=== PATIENT | female | born 1950 | race Caucasian/White ===

== ENCOUNTER 2018-03-15 20:47 | Emergency (ER) | payer MEDICARE, OTHER ==
[~2018-03-15] VITALS: Ht 167.6 cm; Wt 81.2 kg
[2018-03-15] MEDS ORDERED: ALBU2.5V5 NEB (21:24)
[2018-03-15] MEDS ORDERED: HYDR1TAB94 PO (21:24)
[2018-03-15] MEDS ORDERED: ALBU90OI INH (21:24)
[2018-03-15] MEDS ORDERED: BUDE6HFA INH (21:25)
[2018-03-15] MEDS ORDERED: DIAZ5 PO (21:25)
[2018-03-15] MEDS ORDERED: AMLO10 PO (21:25)
[2018-03-15] MEDS ORDERED: Advair Hfa 230-12 GM (21:26)
[2018-03-15] MEDS ORDERED: HYDCHL25 PO (21:27)
[2018-03-15] MEDS ORDERED: INSULANPEN SC (21:27)
[2018-03-15] MEDS ORDERED: LANS30EC PO (21:28)
[2018-03-15] MEDS ORDERED: LISI20 PO (21:28)
[2018-03-15] MEDS ORDERED: MONT10T PO (21:28)
[2018-03-15] MEDS ORDERED: METF500C PO (21:28)
[2018-03-15] MEDS ORDERED: Percocet 5-3251 EACH PO (22:16)
== END 2018-03-15 22:34 | disposition home or self-care (01) ==
LOC: ER 20:47
DX: S52.135A Nondisplaced fracture of neck of left radius, initial encounter for closed fracture (principal); W01.198A Fall on same level from slipping, tripping and stumbling with subsequent striking against other object, initial encounter; E11.9 Type 2 diabetes mellitus without complications; I10 Essential (primary) hypertension; J45.909 Unspecified asthma, uncomplicated; Z87.891 Personal history of nicotine dependence
CPT/HCPCS: 24999; 73070; 73080; 73140; 96374; 99152; 99284-25; J2250; J3010; J7030

== ENCOUNTER → 2019-05-13 | Outpatient (CLI) | payer MEDICARE, OTHER ==
[~2019-05-13] MED LIST: ALBU2.5V5 NEB; ALBU90OI INH; AMLO10 PO; Advair Hfa 230-12 GM; BUDE6HFA INH; DIAZ5 PO; HYDCHL25 PO; HYDR1TAB94 PO; INSULANPEN SC; LANS30EC PO; LISI20 PO; METF500C PO; MONT10T PO; Percocet 5-3251 EACH PO
== END ==
LOC: LAB SHORT 07:49 → PLD 07:49
DX: D04.62 Carcinoma in situ of skin of left upper limb, including shoulder (principal); L30.8 Other specified dermatitis
CPT/HCPCS: 88305; 88312

== ENCOUNTER → 2020-03-09 | Outpatient (CLI) | payer MEDICARE, OTHER | END | disposition home or self-care (01) | LOC: PLD 08:13 → LAB SHORT 08:13 | DX: L57.8 Other skin changes due to chronic exposure to nonionizing radiation (principal) | CPT/HCPCS: 88305 ==

== ENCOUNTER 2020-05-03 06:43 | Day surgery (SDC) | payer MEDICARE, OTHER | END 2020-05-04 11:00 | disposition home or self-care (01) | LOC: ORSCMMR 06:43 → SURS 13:11 | PROC: 0SRD0J9 Replacement of Left Knee Joint with Synthetic Substitute, Cemented, Open Approach (ICD-10-PCS; principal; 2020-05-03) | DX: M17.12 Unilateral primary osteoarthritis, left knee (principal); I10 Essential (primary) hypertension; G47.33 Obstructive sleep apnea (adult) (pediatric); J45.909 Unspecified asthma, uncomplicated; E11.9 Type 2 diabetes mellitus without complications; E66.9 Obesity, unspecified; Z68.34 Body mass index [BMI] 34.0-34.9, adult; Z79.84 Long term (current) use of oral hypoglycemic drugs; Z79.4 Long term (current) use of insulin; Z79.899 Other long term (current) drug therapy ==

== ENCOUNTER 2021-06-16 12:27 | Inpatient (IN) | payer MEDICARE, OTHER ==
[~2021-06-16] VITALS: Ht 165.1 cm; Wt 83.0 kg
[~2021-06-16 12:27] MED LIST changes: +BASAGLAR K100 UNIT/1 SC; -INSULANPEN SC; +OXYC5 PO; +Ventolin/Prove6.7 GM INH; +XARELTO10 MG PO
[2021-06-16 14:09] LABS: Hematocrit 44.4 % (33.0-51.0); Hemoglobin 14.8 g/dL (11.5-16.0); Mean Corpuscular HGB 27.7 pg (26.0-34.0); Mean Corpuscular HGB Conc 33.3 g/dL (31.5-36.5); Mean Corpuscular Volume 83 fL (80-100); Mean Platelet Volume 9.2 fL (9.1-12.4); Platelet Count 562 K/mm3 (150-400); RDW Coefficient Variation 12.8 % (11.7-14.2); RDW Standard Deviation 38.7 fL (35.1-46.3); Red Blood Cell Count 5.35 M/mm3 (3.80-5.20); White Blood Cell Count 18.58 K/mm3 (4.00-11.30)
[2021-06-16 14:23] LABS: Albumin, Blood 2.7 g/dL (3.4-5.0); Albumin/Globulin Ratio 0.6 (0.8-1.8); Bilirubin, Total 0.6 mg/dL (0.1-1.0); Bun/Creatinine Ratio 14.5 (12.0-20.0); Creatinine, Blood 2.27 mg/dL (0.40-1.00); Globulin, Blood 4.3 g/dL (2.2-4.0); Potassium, Blood 4.9 mmol/L (3.5-5.5)
[2021-06-16 14:33] LABS: BAND PERCENT MAN 37 % (0-8); BASOPHILS PERCENT MAN 0 % (0-2); EOSINOPHILS PERCENT MAN 0 % (0-6); LYMPHOCYTES % ATYPICAL MANUAL 1 % (0-0); LYMPHOCYTES ABSOLUTE MAN 1.48 K/mm3 (0.84-5.20); LYMPHOCYTES PERCENT MAN 7 % (21-46); METAMYELOCYTE ABSOLUTE MAN 0.18 K/mm3 (0.00-0.00); METAMYELOCYTE PERCENT MAN 1 % (0-0); MONOCYTES ABSOLUTE MAN 0.18 K/mm3 (0.16-1.47); MONOCYTES PERCENT MAN 1 % (4-13); NEUTROPHILS ABSOLUTE MAN 16.72 K/mm3 (1.96-9.15); SEG NEUTROPHILS PERCENT MAN 53 % (41-73); TOTAL CELLS COUNTED 100
[2021-06-16] MEDS ORDERED: HYDR1TAB94 PO (18:10)
[2021-06-16] MEDS ORDERED: IBUP600 PO (18:11)
[2021-06-16] MEDS ORDERED: SPIR50 PO (18:15)
[2021-06-16 19:13] LABS: Influenza A, PCR NEGATIVE (NEGATIVE); Influenza B, PCR NEGATIVE (NEGATIVE); Resp Syncytial Virus, PCR NEGATIVE (NEGATIVE); SARS-Cov-2 (COVID-19) PCR, MMC NEGATIVE (NEGATIVE)
[2021-06-17 02:10] LABS: BASOPHILS ABSOLUTE AUTO 0.09 K/mm3 (0.00-0.23); BASOPHILS PERCENT AUTO 1 % (0-2); Hematocrit 34.5 % (33.0-51.0); Hemoglobin 11.3 g/dL (11.5-16.0); LYMPHOCYTES ABSOLUTE AUTO 0.84 K/mm3 (0.84-5.20); LYMPHOCYTES PERCENT AUTO 7 % (21-46); MONOCYTES ABSOLUTE AUTO 0.29 K/mm3 (0.16-1.47); MONOCYTES PERCENT AUTO 2 % (4-13); Mean Corpuscular HGB 27.7 pg (26.0-34.0); Mean Corpuscular HGB Conc 32.8 g/dL (31.5-36.5); Mean Corpuscular Volume 85 fL (80-100); Mean Platelet Volume 8.6 fL (9.1-12.4); Platelet Count 363 K/mm3 (150-400); RDW Coefficient Variation 12.8 % (11.7-14.2); RDW Standard Deviation 39.6 fL (35.1-46.3); Red Blood Cell Count 4.08 M/mm3 (3.80-5.20); White Blood Cell Count 12.11 K/mm3 (4.00-11.30)
[2021-06-17 02:11] LABS: EOSINOPHILS ABSOLUTE AUTO 0.01 K/mm3 (0.00-0.68); EOSINOPHILS PERCENT AUTO 0 % (0-6); IMMATURE GRAN ABSOLUTE AUTO 0.03 K/mm3 (0.00-0.10); IMMATURE GRAN PERCENT AUTO 0 % (0-1); NEUTROPHILS ABSOLUTE AUTO 10.85 K/mm3 (1.96-9.15); NEUTROPHILS PERCENT AUTO 90 % (41-73)
[2021-06-17 02:31] LABS: Bun/Creatinine Ratio 23.7 (12.0-20.0); Calcium, Blood 8.5 mg/dL (8.5-10.1); Creatinine, Blood 1.52 mg/dL (0.40-1.00); Potassium, Blood 4.4 mmol/L (3.5-5.5)
--- NOTE | 2021-06-17 05:07 | NUR ---
SHIFT SUMMARY S/P TRANSVERSE PERF, UNABLE TO TOLERATE NG TUBE, FEW ICE CHIPS OK'D BY SURGEON, LACTIC TRENDING TOWARDS NORMAL, PAIN MANAGED PER EMAR, VSS. NO ACUTE EVENTS THIS SHIFT. CALL LIGHT IN REACH, WILL CTM AND REPORT TO DAY RN.
--- NOTE | 2021-06-17 15:29 | NUR ---
DR. FIGUEROA NOTIFIED THAT BLOOD CULTURES WERE POSITIVE. NO CHANGES IN PT CONDITION AT THIS TIME.
--- NOTE | 2021-06-17 18:38 | NUR ---
SHIFT SUMMARY PT IS GETTING IV ABX AND REMAINS NPO. SHE IS A 1 ASSIST WITH GAIT BELT AND WALKER WHEN OOB. SHE IS STILL HAVING ABD PAIN BUT IT IS MANAGED WITH FENTANYL. PT HAS DENIED NAUSEA. ABD REMAINS DISTENDED THIS SHIFT. VSS. WILL MONITOR UNTIL REPORT TO NOC RN.
--- NOTE | 2021-06-18 03:53 | NUR ---
SHIFT SUMMARY A/OX4. VOIDING AND PASSING STOOL THIS SHIFT. TOLERATING SIPS AND CHIPS, NO N/V REPORTED. BEING TREATED FOR PAIN Q2-3H PER EMAR. SCD'S ON AT THIS TIME. AMBULATING TO BATHROOM WITH SBA. RESTING COMFORTABLY AT THIS TIME. WILL REPORT TO ONCOMING RN. CALL LIGHT IN REACH
[2021-06-18 04:27] LABS: Hematocrit 33.2 % (33.0-51.0); Hemoglobin 11.1 g/dL (11.5-16.0); Mean Corpuscular HGB 27.6 pg (26.0-34.0); Mean Corpuscular HGB Conc 33.4 g/dL (31.5-36.5); Mean Corpuscular Volume 83 fL (80-100); Mean Platelet Volume 8.8 fL (9.1-12.4); Platelet Count 307 K/mm3 (150-400); RDW Coefficient Variation 12.9 % (11.7-14.2); RDW Standard Deviation 39.3 fL (35.1-46.3); Red Blood Cell Count 4.02 M/mm3 (3.80-5.20); White Blood Cell Count 10.94 K/mm3 (4.00-11.30)
[2021-06-18 04:52] LABS: Alanine Aminotransfer (ALT/SGP 14 U/L (12-78); Albumin, Blood 1.7 g/dL (3.4-5.0); Albumin/Globulin Ratio 0.5 (0.8-1.8); Alk Phos 70 U/L (50-136); Anion Gap 7 mmol/L (6-16); Aspartate Aminotrans (AST/SGOT 19 U/L (12-37); Bilirubin, Total 0.3 mg/dL (0.1-1.0); Blood Urea Nitrogen 33 mg/dL (8-24); Bun/Creatinine Ratio 38.6 (12.0-20.0); CO2, Blood 23 mmol/L (21-32); Chloride, Blood 106 mmol/L (98-108); Creatinine, Blood 0.86 mg/dL (0.40-1.00); Globulin, Blood 3.5 g/dL (2.2-4.0); Glomerular Filtration Rate >60 (60-); Glucose, Blood 105 mg/dL (70-99); Magnesium, Blood 1.4 mg/dL (1.6-2.4); Potassium, Blood 3.8 mmol/L (3.5-5.5); Sodium, Blood 136 mmol/L (136-145); Total Protein, Blood 5.2 g/dL (6.4-8.2)
[2021-06-18 10:45] LABS: Vancomycin, Random 10.6 ug/mL
--- NOTE | 2021-06-18 18:24 | NUR ---
SHIFT SUMMARY PT WAS ALERT AND ORIENTED THROUGHOUT THE SHIFT. HAD CLEAR HEART AND LUNG SOUNDS IN THE MORNING. STILL HAS HYPOACTIVE BOWEL SOUNDS X4, DISTENDED ABDOMEN, AND TRACE EDEMA IN LOWER EXTREMITIES. IV ON THE LEFT FOREARM BECAME INFILTRATED SHOWING REDNESS, WARMTH, AND SWELLING. THE IV WAS REMOVED AND A POWERGLIDE WAS INSERTED IN HER RIGHT ARM. AFTER THE IV REMOVAL THE REDNESS, WARMTH, AND SWELLING DECREASED AND IS CONTINUING TO DECREASE. PT BEGAN COUGHING DURING THE SHIFT BUT SAYS THAT THE COUGHING IS NORMAL AT HOME AND IT IS ALLERGY INDUCED. PT WAS ABLE TO WALK 50 FT AND PERFORM ADL'S WITH ONE ASSIST. PT CONTINUES TO HAVE PAIN THAT SHE STATES COMES ON ABRUPTLY.
[2021-06-19 04:08] LABS: Hematocrit 31.9 % (33.0-51.0); Hemoglobin 10.8 g/dL (11.5-16.0); Mean Corpuscular HGB Conc 33.9 g/dL (31.5-36.5); Mean Corpuscular Volume 83 fL (80-100); Mean Platelet Volume 8.6 fL (9.1-12.4); Platelet Count 297 K/mm3 (150-400); RDW Coefficient Variation 13.2 % (11.7-14.2); RDW Standard Deviation 39.8 fL (35.1-46.3); Red Blood Cell Count 3.86 M/mm3 (3.80-5.20)
[2021-06-19 04:40] LABS: Alanine Aminotransfer (ALT/SGP 12 U/L (12-78); Albumin, Blood 1.8 g/dL (3.4-5.0); Albumin/Globulin Ratio 0.5 (0.8-1.8); Alk Phos 73 U/L (50-136); Anion Gap 8 mmol/L (6-16); Aspartate Aminotrans (AST/SGOT 13 U/L (12-37); Bilirubin, Total 0.3 mg/dL (0.1-1.0); Blood Urea Nitrogen 24 mg/dL (8-24); Bun/Creatinine Ratio 35.2 (12.0-20.0); CO2, Blood 23 mmol/L (21-32); Calcium, Blood 8.7 mg/dL (8.5-10.1); Chloride, Blood 105 mmol/L (98-108); Creatinine, Blood 0.68 mg/dL (0.40-1.00); Globulin, Blood 3.4 g/dL (2.2-4.0); Glomerular Filtration Rate >60 (60-); Glucose, Blood 142 mg/dL (70-99); Magnesium, Blood 1.8 mg/dL (1.6-2.4); Potassium, Blood 3.5 mmol/L (3.5-5.5); Sodium, Blood 136 mmol/L (136-145); Total Protein, Blood 5.2 g/dL (6.4-8.2)
--- NOTE | 2021-06-19 07:44 | NUR ---
PT VSS T/O NIGHT. PT REP ABD SOMEWHAT INC THIS AM, DENIED N/V. PT C/O RESTLESS LEGS, MED PER EMAR. PT NPO PER ORDERS, IVF AND ABX CONT. AWAITING REPEAT CT SCAN
[2021-06-19 10:57] LABS: International Normalized Ratio 1.23; Prothrombin Time Results 12.7 Sec (9.7-11.5)
--- NOTE | 2021-06-19 14:13 | NUR ---
DR BENÍTEZ IN ROOM TO SEE PATIENT. SHE REPORTS THAT PATIENT WILL BE GOING TO SURGERY AT THIS TIME. PT NPO THIS AM. CBC ORDERED PER DR. BENÍTEZ REQUEST.
--- NOTE | 2021-06-19 14:58 | NUR ---
PT RECENTLY TO DAYSURGERY BY [facility], FAMILY WITH PT. PT REPORTS NPO, RECENTLY VOIDING. History, Chart, Medications and Allergies reviewed before start of procedure.Patient confirms NPO status and agrees with scheduled surgery. Pre-Op teaching done. Pt verbalizes understanding. PT RECIEVING BREATHING TREATMENT FOR HER LUNG SOUNDS PER DR BENÍTEZ.
--- NOTE | 2021-06-19 18:35 | NUR ---
SERVICES MANAGER CONFIRMED WITH CAILIN MENDOZA
--- NOTE | 2021-06-19 19:45 | NUR ---
SHIFT SUMMARY PT A&OX4, VSS/3LNC, NPO, S/P EXP LAP GRAM PATCH, ALICE IN PLACE WNL, LILI DRAINING RED, WAGNER PATENT & DRAINING YELLOW URINE, SANITARIAN MANAGING PAIN, NG LIS. REPORT PROVIDED TO ESTEFANI MENDOZA.
--- NOTE | 2021-06-20 04:55 | NUR ---
SHIFT SUMMARY PT A/OX4. POD0 LAP GRAM PATCH MIDLINE ALICE DRESSING INTACT, SMALL AMOUNT OF RED DRAINAGE. TOLERABLE PAIN LEVEL WITH USE OF FENT UNIT NURSE. POWERGLIDE PLACED IN L UPPER ARM. NG TUBE HOOKED TO LOW INTERMITTEN SUCTION, NO N/V THIS SHIFT. WAGNER DRAINING CLEAR YELLOW URINE. RESTING COMFORTABLY, WILL REPORT TO ONCOMING RN.
[2021-06-20 06:09] LABS: Mean Corpuscular HGB 27.2 pg (26.0-34.0); Mean Corpuscular HGB Conc 32.4 g/dL (31.5-36.5); Mean Corpuscular Volume 84 fL (80-100); Mean Platelet Volume 8.8 fL (9.1-12.4); Platelet Count 355 K/mm3 (150-400); RDW Coefficient Variation 13.4 % (11.7-14.2); RDW Standard Deviation 41.6 fL (35.1-46.3); Red Blood Cell Count 4.05 M/mm3 (3.80-5.20)
[2021-06-20 06:27] LABS: Alanine Aminotransfer (ALT/SGP 26 U/L (12-78); Albumin, Blood 1.8 g/dL (3.4-5.0); Albumin/Globulin Ratio 0.5 (0.8-1.8); Alk Phos 119 U/L (50-136); Anion Gap 10 mmol/L (6-16); Aspartate Aminotrans (AST/SGOT 26 U/L (12-37); Bilirubin, Total 0.3 mg/dL (0.1-1.0); Blood Urea Nitrogen 17 mg/dL (8-24); Bun/Creatinine Ratio 25.8 (12.0-20.0); CO2, Blood 24 mmol/L (21-32); Calcium, Blood 8.6 mg/dL (8.5-10.1); Chloride, Blood 103 mmol/L (98-108); Creatinine, Blood 0.66 mg/dL (0.40-1.00); Globulin, Blood 3.5 g/dL (2.2-4.0); Glomerular Filtration Rate >60 (60-); Glucose, Blood 150 mg/dL (70-99); Magnesium, Blood 1.4 mg/dL (1.6-2.4); Potassium, Blood 4.4 mmol/L (3.5-5.5); Sodium, Blood 137 mmol/L (136-145); Total Protein, Blood 5.3 g/dL (6.4-8.2)
--- NOTE | 2021-06-20 16:27 | NUR ---
06/20/21 1627 Ewelina Murray VERIFICATIONS: EDIT CHART.
--- NOTE | 2021-06-20 18:05 | NUR ---
SHIFT SUMMARY PT A&OX4, VSS, POD1 GRAM PATCH, MIDLINE ALICE WNL, LILI 20MLS OUT. NGT LIS 100MLS OUT. ASBESTOS PIPE SUPERVISOR PAIN MGMT. NPO. OOB WITH PT/OT, UP TO CHAIR, AMB W/FWW/SBA. POWERGLIDE TO RUE, INFUSING ABX PER EMAR. WAGNER PATENT & DRAINING DK ORANGE URINE. WILL REPORT TO ESTEFANI MENDOZA.
[2021-06-21 05:42] LABS: Hematocrit 33.7 % (33.0-51.0); Hemoglobin 10.9 g/dL (11.5-16.0); Mean Corpuscular HGB 27.1 pg (26.0-34.0); Mean Corpuscular HGB Conc 32.3 g/dL (31.5-36.5); Mean Corpuscular Volume 84 fL (80-100); Mean Platelet Volume 8.7 fL (9.1-12.4); Platelet Count 403 K/mm3 (150-400); RDW Coefficient Variation 13.7 % (11.7-14.2); RDW Standard Deviation 42.5 fL (35.1-46.3); Red Blood Cell Count 4.02 M/mm3 (3.80-5.20); White Blood Cell Count 14.72 K/mm3 (4.00-11.30)
[2021-06-21 06:23] LABS: Alanine Aminotransfer (ALT/SGP 19 U/L (12-78); Albumin/Globulin Ratio 0.7 (0.8-1.8); Alk Phos 108 U/L (50-136); Anion Gap 11 mmol/L (6-16); Aspartate Aminotrans (AST/SGOT 11 U/L (12-37); Bilirubin, Total 0.3 mg/dL (0.1-1.0); Blood Urea Nitrogen 28 mg/dL (8-24); Bun/Creatinine Ratio 36.8 (12.0-20.0); CO2, Blood 22 mmol/L (21-32); Chloride, Blood 107 mmol/L (98-108); Creatinine, Blood 0.76 mg/dL (0.40-1.00); Glomerular Filtration Rate >60 (60-); Glucose, Blood 140 mg/dL (70-99); Magnesium, Blood 1.7 mg/dL (1.6-2.4); Potassium, Blood 3.7 mmol/L (3.5-5.5); Sodium, Blood 140 mmol/L (136-145)
--- NOTE | 2021-06-21 06:48 | NUR ---
PT IS A/OX2-3 WITH SOME INTERMITTENT CONFUSING DURING THE NIGHT. SHE IS ABLE TO MAKE HER NEEDS KNOWN. SHE IS POD #2 FOR EXP LAP FOR LG BOWEL PERF. MIDLINE INCISION W/ALICE DRSG, DRSG HAD OLD BLOODY DRNG THAT HAS BEEN OUTLINED. RLQ LILI DRAIN INSERTION SITE W/DRNG, BUT DRSG INTACT. BLOODY DRNG IN BULB. BULB COMPRESSED. NGT TO RT NARE AND SET TO LIS. WAGNER INTACT & TO GRAVITY, DARK YELLOW/ORANGE URINE, BAG OFF FLOOR. PT NEEDS REMINDING TO USE COPY MACHINE OPERATOR FOR PAIN CONTROL. HAS NON-PRODUCTIVE COUGH. GIVEN I/S AND IS ABLE TO RETURN DEMO. USES PILLOW TO SPLINT COUGHS. EDUCATED/REMINDED TO COUGH AND DEEP BREATH.
--- NOTE | 2021-06-21 17:25 | NUR ---
SUMMARY NO ACUTE CHANGES T/O SHIFT. NG TO R NARES PRODUCING LIGHT GREEN FLUID. PT'S WAGNER CATH DC'D THIS SHIFT/VOIDING WITHOUT DIFFICULTY. IV FLUIDS INFUSING PER ORDERS. PAIN MANAGED W/PET WALKER. PT SAT UP IN RECLINER THIS SHIFT. CALL LIGHT AND PET WALKER IN REACH. PLAN FOR UGI IN AM.
--- NOTE | 2021-06-22 05:28 | NUR ---
PT IS A/OX3. ABLE TO MAKE HER NEEDS KNOWN. NO EVENTS OVER NIGHT. S/P EXP LAP TJ PATCH OF PERF GASTRIC ULCER FOR AN INTRA-ABDOMINAL ABSCESS. MIDLINE INCISION W/ALICE. ALCIE WORKING WELL. RLQ LILI DRAIN INTACT, COMPRESSED. LARGE PURPLE BRUISE TO LFA. WAGNER D/C'D YESTERDAY. IS VOIDING WELL USING BSC. NPO. NGT TO RT NARE SET TO LIS. GREEN EFFLUENT. PAIN MANAGED W/CARD GRADER. PLAN IS TO HAVE UPPER GI TODAY.
--- NOTE | 2021-06-22 08:09 | NUR ---
RESTING IN BED, TAKING ICE CHIPS PRN, STATES CONTINUES TO HAVE ABD PAIN, USING FOOD PORTER FOR PAIN CONTROL, REPORTS HAVING ADEQUATE PAIN CONTROL WITH FOOD PORTER, DENIES ANY NAUSEA, OOB W/ ASSIST TO BSC OR CHAIR, CONT. TO MONITOR FOR ANY CHANGES.
--- NOTE | 2021-06-22 14:18 | NUR ---
OOB TO CHAIR, TOLERATED WELL, WORKED WITH PT, PT DID WELL PER THERAPY, NGT REMOVED BY DR. BENÍTEZ, DENIES ANY DISCOMFORT, DIET NOTED CHANGED TO CLEAR LIQUIDS, JELLO AND APPLE JUICE GIVEN TO TRY, STARTED WEANING OFF DOCTOR'S ASSISTANT, NORCO GIVEN FOR PAIN, CONT. TO MONITOR FOR ANY CHANGES.
--- NOTE | 2021-06-22 19:20 | NUR ---
SUMMARY TOLERATED SMALL AMOUNTS OF CLEAR LIQUIDS WELL, DENIES ANY NAUSEA, IV SL'D, TAKING NORCO FOR PAIN, STATE PAIN HAS BEEN TOLERABLE, AMBULATING DOWN THE HOYT AND INTO THE BATHROOM, ABD DSG C/D/I, LILI CONT. TO DRAIN PURULENT DRAINAGE, NO ACUTE CHANGES THIS SHIFT.
--- NOTE | 2021-06-22 19:22 | NUR ---
TOLERATING SOME JELLO AND CRACKERS WELL, PERCOCET GIVEN FOR PAIN, ABD INCISIONS C/D/I, VSS, NO ACUTE CHANGES THIS SHIFT.
--- NOTE | 2021-06-23 07:18 | NUR ---
PT IS A/OX3. ABLE TO MAKE HER NEEDS KNOWN. TOLERATING CL DIET WELL. DENIED ANY N/V OVERNIGHT. BT'S POS X4. NGT WAS D/C'D YESTERDAY. ROOM AIR. I/S & INHALER AT BEDSIDE, INDEPENDENT W/BOTH. EXP WHEEZING & SOB W/MIN EXERTION. WORKING W/THERAPY DURING DAY. SBA W/FWW. MIDLINE ALICE WORKING WELL, COMPRESSED. RLQ LILI DRAIN INTACT W/PURULENT DRNG. PAIN MANAGED W/PRN NORCO.
[2021-06-23 11:30] LABS: BASOPHILS ABSOLUTE AUTO 0.08 K/mm3 (0.00-0.23); BASOPHILS PERCENT AUTO 0 % (0-2); EOSINOPHILS ABSOLUTE AUTO 0.15 K/mm3 (0.00-0.68); EOSINOPHILS PERCENT AUTO 1 % (0-6); Hemoglobin 11.3 g/dL (11.5-16.0); IMMATURE GRAN ABSOLUTE AUTO 0.85 K/mm3 (0.00-0.10); IMMATURE GRAN PERCENT AUTO 5 % (0-1); LYMPHOCYTES ABSOLUTE AUTO 1.91 K/mm3 (0.84-5.20); LYMPHOCYTES PERCENT AUTO 10 % (21-46); MONOCYTES ABSOLUTE AUTO 0.88 K/mm3 (0.16-1.47); MONOCYTES PERCENT AUTO 5 % (4-13); Mean Corpuscular HGB 27.2 pg (26.0-34.0); Mean Corpuscular HGB Conc 33.2 g/dL (31.5-36.5); Mean Corpuscular Volume 82 fL (80-100); Mean Platelet Volume 9.3 fL (9.1-12.4); NEUTROPHILS ABSOLUTE AUTO 14.42 K/mm3 (1.96-9.15); NEUTROPHILS PERCENT AUTO 79 % (41-73); Platelet Count 519 K/mm3 (150-400); RDW Coefficient Variation 13.6 % (11.7-14.2); RDW Standard Deviation 40.7 fL (35.1-46.3); Red Blood Cell Count 4.16 M/mm3 (3.80-5.20); White Blood Cell Count 18.29 K/mm3 (4.00-11.30)
--- NOTE | 2021-06-23 19:12 | NUR ---
SHIFT SUMMARY PT POD #4 FOR EX LAP WITH TJ PATCH. ALICE DRESSING MIDLINE CDI. LILI DRAIN DRAINING PURULENT DRAINAGE. STOOL SAMPLE NEEDED. VSS. WILL REPORT TO ESTEFANI MENDOZA.
[2021-06-24 04:48] LABS: BASOPHILS ABSOLUTE AUTO 0.07 K/mm3 (0.00-0.23); BASOPHILS PERCENT AUTO 0 % (0-2); EOSINOPHILS ABSOLUTE AUTO 0.34 K/mm3 (0.00-0.68); EOSINOPHILS PERCENT AUTO 2 % (0-6); Hemoglobin 10.7 g/dL (11.5-16.0); IMMATURE GRAN ABSOLUTE AUTO 0.49 K/mm3 (0.00-0.10); IMMATURE GRAN PERCENT AUTO 3 % (0-1); LYMPHOCYTES ABSOLUTE AUTO 1.77 K/mm3 (0.84-5.20); LYMPHOCYTES PERCENT AUTO 11 % (21-46); MONOCYTES ABSOLUTE AUTO 0.69 K/mm3 (0.16-1.47); MONOCYTES PERCENT AUTO 4 % (4-13); Mean Corpuscular HGB 27.2 pg (26.0-34.0); Mean Corpuscular HGB Conc 33.4 g/dL (31.5-36.5); Mean Corpuscular Volume 81 fL (80-100); NEUTROPHILS ABSOLUTE AUTO 12.78 K/mm3 (1.96-9.15); NEUTROPHILS PERCENT AUTO 79 % (41-73); Platelet Count 466 K/mm3 (150-400); RDW Coefficient Variation 13.6 % (11.7-14.2); RDW Standard Deviation 40.5 fL (35.1-46.3); Red Blood Cell Count 3.93 M/mm3 (3.80-5.20); White Blood Cell Count 16.14 K/mm3 (4.00-11.30)
[2021-06-24 05:08] LABS: Anion Gap 9 mmol/L (6-16); Blood Urea Nitrogen 14 mg/dL (8-24); Bun/Creatinine Ratio 28.3 (12.0-20.0); CO2, Blood 26 mmol/L (21-32); Calcium, Blood 8.7 mg/dL (8.5-10.1); Chloride, Blood 103 mmol/L (98-108); Glomerular Filtration Rate >60 (60-); Glucose, Blood 135 mg/dL (70-99); Sodium, Blood 138 mmol/L (136-145)
--- NOTE | 2021-06-24 15:44 | NUR ---
SHIFT SUMMARY PT A&OX4, OFELIA FULL LIQUID DIET, VOIDING WELL, BM TODAY, AMB WITH FWW INDEPENDENTLY IN ROOM TO BRP. POD5 EXP LAP W/TJ PATCH, ALICE DRY INTACT WNL, LILI RLQ 10 MLS OUT THIS SHIFT. PAIN MANAGED WITH 5 MG NORCO PRN. WILL REPORT TO NEXT RN.
[2021-06-25 05:19] LABS: BASOPHILS ABSOLUTE AUTO 0.04 K/mm3 (0.00-0.23); BASOPHILS PERCENT AUTO 0 % (0-2); EOSINOPHILS ABSOLUTE AUTO 0.34 K/mm3 (0.00-0.68); EOSINOPHILS PERCENT AUTO 2 % (0-6); Hematocrit 29.3 % (33.0-51.0); Hemoglobin 9.6 g/dL (11.5-16.0); IMMATURE GRAN ABSOLUTE AUTO 0.26 K/mm3 (0.00-0.10); IMMATURE GRAN PERCENT AUTO 2 % (0-1); LYMPHOCYTES ABSOLUTE AUTO 1.43 K/mm3 (0.84-5.20); LYMPHOCYTES PERCENT AUTO 10 % (21-46); MONOCYTES ABSOLUTE AUTO 0.82 K/mm3 (0.16-1.47); MONOCYTES PERCENT AUTO 6 % (4-13); Mean Corpuscular HGB 26.9 pg (26.0-34.0); Mean Corpuscular HGB Conc 32.8 g/dL (31.5-36.5); Mean Corpuscular Volume 82 fL (80-100); Mean Platelet Volume 9.4 fL (9.1-12.4); NEUTROPHILS ABSOLUTE AUTO 11.25 K/mm3 (1.96-9.15); NEUTROPHILS PERCENT AUTO 80 % (41-73); Platelet Count 430 K/mm3 (150-400); RDW Coefficient Variation 13.6 % (11.7-14.2); RDW Standard Deviation 40.6 fL (35.1-46.3); Red Blood Cell Count 3.57 M/mm3 (3.80-5.20); White Blood Cell Count 14.14 K/mm3 (4.00-11.30)
--- NOTE | 2021-06-25 05:37 | NUR ---
SHIFT SUMMARY POD5 EXP LAP TJ PATCH WITH PERF ULCER. PT REPORTS ABD PAIN AND RESTLESS LEGS OVERNIGHT. PAIN MANAGED WITH NORCO 5/325 (2 TAB) Q4. BT PRESENT. PASSING FLATUS. TOLERATING FULL LIQ DIET. PT DENIES NAUSEA AND VOMITING. ABD STILL MILDLY DISTENDED. LILI DRAINING SANCHEZ COLOR OUTPUT, 30ML OVERNIGHT. AMBULATING INDEPENDENTLY. VOIDING WITHOUT ANY ISSUE. VSS. AOX4. CALL LIGHT WITHIN REACH. WILL PROVIDE REPORT TO ONCOMING NURSE.
[2021-06-25 06:34] LABS: Anion Gap 9 mmol/L (6-16); Blood Urea Nitrogen 10 mg/dL (8-24); Bun/Creatinine Ratio 19.1 (12.0-20.0); CO2, Blood 27 mmol/L (21-32); Calcium, Blood 7.9 mg/dL (8.5-10.1); Chloride, Blood 102 mmol/L (98-108); Creatinine, Blood 0.52 mg/dL (0.40-1.00); Glomerular Filtration Rate >60 (60-); Glucose, Blood 139 mg/dL (70-99); Potassium, Blood 3.4 mmol/L (3.5-5.5); Sodium, Blood 138 mmol/L (136-145)
[2021-06-25] MEDS ORDERED: PROBIOTIC1 EA13 PO (11:21)
[2021-06-25] MEDS ORDERED: PANT40 PO (11:21)
[2021-06-25] MEDS ORDERED: LEVO750 PO (11:21)
--- NOTE | 2021-06-25 13:55 | NUR ---
DISCHARGE SUMMARY PT A&OX4, VSS, VOIDING, TOLERATING PO, PAIN MANAGED, LEFT FLOOR VIA WC WITH HOSTESS HOST TO GO HOME WITH , WITH DISCHARGE PACKET, 1 NARC SCRIPT. SCRIPTS FAXED TO [facility]. DC INSTRUCTIONS PROVIDED. PT UNDERSTANDS FU WITH SURGEON 1 WK, OK TO SHOWER, LILI LEFT IN TILL FOLLOWUP, MEDIPORE DRESSINGS PROVIDED TO CHANGE DAILY, JASON TO COME OUT OF OFFICE APPOINTMENT. EXT DWELLING REMOVED.
== END 2021-06-25 12:00 | disposition home or self-care (01) | DRG 853 ==
LOC: ER 12:27 → SURS 17:23 → ERHOLD 17:23 → SURS 20:49
PROVIDERS: Hospitalist; Internal Medicine; Pharmacist; Physician Assistant; Surgery; ADMIT Internal Medicine
PROC: 0DU607Z Supplement Stomach with Autologous Tissue Substitute, Open Approach (ICD-10-PCS; principal; 2021-06-16)
PROC: 0DU707Z Supplement Stomach, Pylorus with Autologous Tissue Substitute, Open Approach (ICD-10-PCS; 2021-06-16)
DX: A41.01 Sepsis due to Methicillin susceptible Staphylococcus aureus (principal); K65.1 Peritoneal abscess; K57.20 Diverticulitis of large intestine with perforation and abscess without bleeding; N17.9 Acute kidney failure, unspecified; E87.1 Hypo-osmolality and hyponatremia; E46 Unspecified protein-calorie malnutrition; Z20.822 Contact with and (suspected) exposure to COVID-19; E87.6 Hypokalemia; I95.9 Hypotension, unspecified; K31.89 Other diseases of stomach and duodenum; J44.9 Chronic obstructive pulmonary disease, unspecified; E11.9 Type 2 diabetes mellitus without complications; J45.20 Mild intermittent asthma, uncomplicated; Z68.28 Body mass index [BMI] 28.0-28.9, adult; K21.9 Gastro-esophageal reflux disease without esophagitis; I10 Essential (primary) hypertension; Z88.0 Allergy status to penicillin; Z88.2 Allergy status to sulfonamides; Z91.010 Allergy to peanuts; Z91.011 Allergy to milk products; Z88.5 Allergy status to narcotic agent; Z28.89 Immunization not carried out for other reason; Z88.8 Allergy status to other drugs, medicaments and biological substances; Z88.6 Allergy status to analgesic agent; Z79.4 Long term (current) use of insulin; Z79.899 Other long term (current) drug therapy; Z90.49 Acquired absence of other specified parts of digestive tract; Z98.890 Other specified postprocedural states; Z90.710 Acquired absence of both cervix and uterus; Z87.891 Personal history of nicotine dependence
CPT/HCPCS: 0241U; 36415; 71045; 74177; 74240; 80048; 80053; 80202; 82947; 83605; 83690; 83735; 85025; 85027; 85610; 85730; 86140; 87040; 87070; 87075; 87077; 87086; 87147; 87186; 87205; 93005; 93010; 94640; 94644; 94664; 94667; 94760; 96365; 96367; 96375; 96376; 97110; 97116; 97162; 97165; 97530; 97535; 99285-25; A9270; C1751; C9113; J0330; J0696; J1100; J1170; J1650; J1815; J1956; J2270; J2405; J2704; J3010; J3370; J3475; J7030; J7050; J7120; Q9967

== ENCOUNTER 2021-08-17 10:59 | Day surgery (SDC) | payer MEDICARE, OTHER ==
[~2021-08-17] VITALS: Ht 165.1 cm; Wt 69.8 kg
[~2021-08-17 10:59] MED LIST changes: +IBUP600 PO; +LEVO750 PO; +PANT40 PO; +PROBIOTIC1 EA13 PO; +SPIR50 PO
--- NOTE | 2021-08-17 12:47 | NUR ---
History, Chart, Medications and Allergies reviewed before start of procedure.Patient confirms NPO status and agrees with scheduled surgery. Pre-Op teaching done. Pt verbalizes understanding. Patient States Post-Procedure ride home has been arranged.
--- NOTE | 2021-08-17 14:30 | NUR ---
Discharge instructions reviewed with patient. Patient verbalizes understanding. Copy given to patient to take home. Patient States Post-Procedure ride home has been arranged. Discharged via wheelchair to private car for ride home.
== END 2021-08-17 23:44 | disposition home or self-care (01) ==
LOC: ORSCMMR 10:59 → ORSCSDS 12:15 → ORD 12:30 → ORSCMMR 12:30 → ORSCSDS 08-31 08:00
PROVIDERS: Surgery
PROC: 0DB68ZX Excision of Stomach, Via Natural or Artificial Opening Endoscopic, Diagnostic (ICD-10-PCS; principal; 2021-08-17 12:30)
DX: K31.1 Adult hypertrophic pyloric stenosis (principal); Z87.11 Personal history of peptic ulcer disease; Z87.898 Personal history of other specified conditions; K44.9 Diaphragmatic hernia without obstruction or gangrene; E78.5 Hyperlipidemia, unspecified; E11.9 Type 2 diabetes mellitus without complications; Z86.711 Personal history of pulmonary embolism; F41.9 Anxiety disorder, unspecified; J45.909 Unspecified asthma, uncomplicated; K21.9 Gastro-esophageal reflux disease without esophagitis; Z87.891 Personal history of nicotine dependence; Z79.4 Long term (current) use of insulin; Z79.899 Other long term (current) drug therapy
CPT/HCPCS: 82947; 88305; 88312; J2704; J7120

== ENCOUNTER → 2021-09-12 | Outpatient (CLI) | payer MEDICARE, OTHER ==
[2021-09-12 12:44] LABS: Adenovirus F 40/41 Not Detected (NOT DETECT); Astrovirus Not Detected (NOT DETECT); Campylobacter Sp Not Detected (NOT DETECT); Cryptosporidium Not Detected (NOT DETECT); Cyclospora Cayetanensis Not Detected (NOT DETECT); E. Coli O157 Not Detected (NOT DETECT); Entamoeba Histolytica Not Detected (NOT DETECT); Enteroaggregative E. coli-EAEC Not Detected (NOT DETECT); Enteropathogenic E. coli-EPEC Not Detected (NOT DETECT); Enterotoxigenic E. coli-ETEC Not Detected (NOT DETECT); Giardia Lamblia Not Detected (NOT DETECT); Norovirus GI/GII Not Detected (NOT DETECT); Plesiomonas Shigelloides Not Detected (NOT DETECT); Rotavirus A Not Detected (NOT DETECT); Salmonella Sp Not Detected (NOT DETECT); Sapovirus Not Detected (NOT DETECT); Shiga Toxin-prod E. coli-STEC Not Detected (NOT DETECT); Shigella/Enteroin E. coli-EIEC Not Detected (NOT DETECT); Vibrio Cholerae Not Detected (NOT DETECT); Vibrio Sp Not Detected (NOT DETECT); Yersinia Enterocolitica Not Detected (NOT DETECT)
== END ==
LOC: LAB 09:47 → LAB SHORT 09:47
PROVIDERS: Surgery
DX: R19.7 Diarrhea, unspecified (principal)
CPT/HCPCS: 0097U

== ENCOUNTER 2021-12-15 06:57 | Day surgery (SDC) | payer MEDICARE, OTHER ==
[~2021-12-15] VITALS: Ht 167.6 cm; Wt 65.1 kg
--- NOTE | 2021-12-15 08:40 | NUR ---
12/15/21 0840 [place] DELAY IN START TIME DUE TO 1ST CASE GETTING DONE EARLY. PT NEEDED DUONEB PRIOR TO GOING TO OR AND WAS ORDERED WHEN ANESTHESIA CAME INTO ROOM. PT COUGHING UP COPIOUS AMOUNTS SECRETIONS WITH DUONEB.
--- NOTE | 2021-12-15 10:19 | NUR ---
12/15/21 1019 BRADFORD ACUÑA 2ND DOSE OF 50MCG IV FENTANYL GIVEN.= 100MG. PT STATES PAIN STILL 04/14
--- NOTE | 2021-12-15 10:37 | NUR ---
12/15/21 BRADFORD DELAROSA 3RD DOSE OF FENTANYL 50MCG GIVEN VIA IV= 150MCG. PAIN 01/12
== END 2021-12-15 11:30 | disposition home or self-care (01) ==
LOC: ORSCSDS 06:57
PROVIDERS: Orthopaedic Surgery
PROC: 0LUL0KZ Supplement Right Upper Leg Tendon with Nonautologous Tissue Substitute, Open Approach (ICD-10-PCS; principal; 2021-12-15 08:30)
DX: M76.02 Gluteal tendinitis, left hip (principal); I10 Essential (primary) hypertension; Z87.891 Personal history of nicotine dependence; J45.909 Unspecified asthma, uncomplicated; K21.9 Gastro-esophageal reflux disease without esophagitis; E11.9 Type 2 diabetes mellitus without complications; F41.9 Anxiety disorder, unspecified; Z79.84 Long term (current) use of oral hypoglycemic drugs; Z79.899 Other long term (current) drug therapy
CPT/HCPCS: 82947; A9270; C1713; J0690; J1100; J2250; J2370; J2405; J2704; J3010; J7120

== ENCOUNTER 2021-12-22 16:42 | Emergency (ER) | payer MEDICARE, OTHER ==
[~2021-12-22] VITALS: Ht 167.6 cm; Wt 65.8 kg
[2021-12-22 17:06] LABS: BASOPHILS ABSOLUTE AUTO 0.07 K/mm3 (0.00-0.23); BASOPHILS PERCENT AUTO 1 % (0-2); EOSINOPHILS ABSOLUTE AUTO 0.53 K/mm3 (0.00-0.68); EOSINOPHILS PERCENT AUTO 5 % (0-6); Hematocrit 39.6 % (33.0-51.0); Hemoglobin 12.6 g/dL (11.5-16.0); IMMATURE GRAN ABSOLUTE AUTO 0.07 K/mm3 (0.00-0.10); IMMATURE GRAN PERCENT AUTO 1 % (0-1); LYMPHOCYTES ABSOLUTE AUTO 2.34 K/mm3 (0.84-5.20); LYMPHOCYTES PERCENT AUTO 21 % (21-46); MONOCYTES ABSOLUTE AUTO 0.72 K/mm3 (0.16-1.47); MONOCYTES PERCENT AUTO 7 % (4-13); Mean Corpuscular HGB 26.9 pg (26.0-34.0); Mean Corpuscular HGB Conc 31.8 g/dL (31.5-36.5); Mean Corpuscular Volume 84 fL (80-100); Mean Platelet Volume 8.6 fL (9.1-12.4); NEUTROPHILS PERCENT AUTO 66 % (41-73); Platelet Count 449 K/mm3 (150-400); RDW Coefficient Variation 14.6 % (11.7-14.2); RDW Standard Deviation 44.7 fL (35.1-46.3); Red Blood Cell Count 4.69 M/mm3 (3.80-5.20); White Blood Cell Count 11.03 K/mm3 (4.00-11.30)
[2021-12-22 17:25] LABS: Albumin, Blood 3.3 g/dL (3.4-5.0); Albumin/Globulin Ratio 0.8 (0.8-1.8); Bilirubin, Total 0.3 mg/dL (0.1-1.0); Bun/Creatinine Ratio 16.3 (12.0-20.0); Calcium, Blood 9.5 mg/dL (8.5-10.1); Creatinine, Blood 0.8 mg/dL (0.40-1.00); Globulin, Blood 4.1 g/dL (2.2-4.0); Potassium, Blood 4.1 mmol/L (3.5-5.5); Total Protein, Blood 7.4 g/dL (6.4-8.2)
[2021-12-22 18:30] LABS: Source, Urine Clean Catch
[2021-12-22 18:37] LABS: Appearance, Urine Clear (Clear); Bilirubin, Urine Neg (Neg); Blood, Urine Neg (Neg); Glucose Qualitative, Urine 1+ (Neg); Ketones, Urine Neg (Neg); Leukocyte Esterase, Urine Neg (Neg); Nitrite, Urine Neg (Neg); Protein, Urine Neg (Neg); Urobilinogen, Urine NORM (Normal)
[2021-12-22 18:43] LABS: Color, Urine Pale Yellow (P-Yellow)
[2021-12-22] MEDS ORDERED: Miralax17 GM PO (21:29)
== END 2021-12-22 22:05 | disposition home or self-care (01) ==
LOC: ER 16:42
PROVIDERS: Physician Assistant
DX: K59.00 Constipation, unspecified (principal); R33.9 Retention of urine, unspecified; R10.9 Unspecified abdominal pain; I10 Essential (primary) hypertension; E11.9 Type 2 diabetes mellitus without complications; J45.909 Unspecified asthma, uncomplicated; Z79.84 Long term (current) use of oral hypoglycemic drugs; Z79.899 Other long term (current) drug therapy; Z91.011 Allergy to milk products; Z88.5 Allergy status to narcotic agent; Z91.010 Allergy to peanuts; Z88.0 Allergy status to penicillin; Z88.2 Allergy status to sulfonamides; Z88.8 Allergy status to other drugs, medicaments and biological substances; Z91.018 Allergy to other foods; Z98.890 Other specified postprocedural states
CPT/HCPCS: 36415; 51702; 74176; 80053; 81003; 83690; 85025; A9270; J2405; J7030

== ENCOUNTER → 2022-02-01 | Outpatient (CLI) | payer MEDICARE, OTHER ==
[~2022-02-01] MED LIST changes: +Miralax17 GM PO
== END | disposition home or self-care (01) ==
LOC: PLD 11:00 → LAB SHORT 11:00
DX: L98.499 Non-pressure chronic ulcer of skin of other sites with unspecified severity (principal)
CPT/HCPCS: 88305

== ENCOUNTER → 2023-03-07 | Outpatient (CLI) | payer MEDICARE, OTHER ==
[~2023-03-07] MED LIST changes: +Prednisone20 MG PO
== END ==
LOC: LAB 14:59 → LAB SHORT 14:59
DX: C44.311 Basal cell carcinoma of skin of nose (principal)
CPT/HCPCS: 88305